=== PATIENT | female | born 1995 | race Caucasian/White ===

== ENCOUNTER 2020-10-04 06:50 | Day surgery (SDC) | payer OTHER ==
[~2020-10-04] VITALS: Ht 165.1 cm; Wt 65.9 kg
[~2020-10-04 06:50] MED LIST: BENADRYL25 MG PO; BIOTIN10 MG PO; CALCIUM500 M1 PO; DEPO-PROVE400 MG/1 M IM; KEFLEX500 MG PO; PRENATABS FA T1 EACH PO; PROBIOTIC1 EAC5 PO; SARAFEM20 MG PO; TYLENOL EXTRA500 MG PO; VALTREX1000 MG PO; VITAMIN D2000 UNIT PO; ZINC50 M1 PO; [UNRECOGNIZED DRUG - OTHER]
[2020-10-04] MEDS ORDERED: IBUPROFEN200 M1 PO (07:13)
[2020-10-04] MEDS ORDERED: ALEVE220 MG PO (07:14)
--- NOTE | 2020-10-04 07:22 | NUR ---
RT COLLECTED COVID 19 SWAB WITH NO COMPLICATIONS. RT USED THE CEPHEID RAPID TEST THROUGH IN HOUSE LAB PER DR REQUEST AT THIS TIME.
[2020-10-04] MEDS ORDERED: HYDROCODON-ACE1 EA11 PO (10:43)
[2020-10-04] MEDS ORDERED: DICLOFENAC SODI75 MG PO (10:43)
--- NOTE | 2020-10-04 10:53 | NUR ---
10/04/20 1053 Silvia Alcantara 1037- PT ARRIVES TO PACU AROUSABLE TO VOICE. PT IS NOT ANSWERING QUESTIONS YET. RESP EVEN AND UNLABORED. OXYGEN SAT HIGH 90'S TO 100% ON 6L VIA MASK. 1041- OXYGEN TITRATED OFF. 1046- PT REPORTS SHE IS HAVING 7/10 LEFT KNEE PAIN ON THE TOP OF THE KNEE. PT WOULD LIKE TO RECEIVE PAIN MEDICATION. COLLEGE SPECIALIST OFFERS NERVE BLOCK. PT STATES SHE WILL TAKE PAIN MEDICATION FIRST AND THEN DECIDE FROM THERE. 1050- PT PROVIDED ICE WATER. TOLERATING WELL. 1052- DR. WAN AT THE BEDSIDE TO TALK WITH THE PT.
--- NOTE | 2020-10-04 12:42 | NUR ---
STEADY ON FEET WITH ONE PERSON STAND BY ASSIST FOR AMBULATION TO BR. MINIMAL LIMPING NOTED. VOIDED LARGE UNMEASURED URINE IN BR. RETURNED TO BED AND REVIEWED DISCHARGE INSTRUCTIONS WITH MOTHER AT BEDSIDE. CONTINUES TO REPORT 2/10 RIGHT KNEE PAIN AND DENIES NAUSEA. DRESSED WITH HELP OF MOM AND REPORTS FEELING READY TO GO HOME.
--- NOTE | 2020-10-07 06:55 | OR ---
[facility] [address], [place] [address] Signed DATE OF OPERATION: 10/04/2020 SURGEON: Cheko Cortes MD PREOPERATIVE DIAGNOSIS: Medial meniscus tear, left knee. POSTOPERATIVE DIAGNOSIS: Locked bucket-handle tear of the medial meniscus, left knee. PROCEDURE PERFORMED: Left knee arthroscopy with partial medial meniscectomy. SWIMMING POOL SERVICER: None. ANESTHESIA: General. BLOOD LOSS: Minimal. BRIEF HISTORY: Branden is a 25-year-old female with pain and locking in her knee. MRI was consistent with fairly large meniscus tear and initially, she was watched for a while and her symptoms got worse. Finally, she elected to proceed with surgery. Once consent was obtained, she was taken to the operating room. After adequate anesthesia, she was placed on the operating room table. The right leg was flexed, abducted, and externally rotated in a well-padded leg aguirre and all downside pressure points were padded. The left leg was placed in a well-padded leg aguirre and the portal sites were pre-injected using 0.25% Marcaine with epinephrine under an alcohol prep. The leg was then prepped and draped in a standard sterile fashion. Standard inferior lateral and superolateral portals were made and the scope was introduced in the knee. ARTHROSCOPIC FINDINGS: Marked synovitis was noted throughout the medial half of the knee. The patella was noted to track well with no significant chondromalacia. The lateral compartment was intact. ACL and PCL were intact. The medial meniscus was noted to be torn and flipped into the notch. This was about 50% of the meniscus from the anteromedial corner extending back to the mid posterior horn. Electronically Signed By: CHEKO CORTES MD 10/07/20 0655 PATIENT NAME: BRANDEN MOLINA OPERATIVE REPORT DATE OF : [birth year] REPORT #: [id number] PHYSICIAN: CHEKO CORTES MD PCP: BRIAN RIVAS PAC REPORT IS CONFIDENTIAL AND NOT TO BE RELEASED WITHOUT AUTHORIZATION [facility] [address], [place] [address] Signed DESCRIPTION OF OPERATION: The diagnostic arthroscopy was undertaken as noted above. The scope was then moved to the medial portal and thin straight biters were used to cut the bucket-handle tear portion of the meniscus anteriorly and posteriorly. This was then removed in sections. Once this was accomplished, the remaining meniscus was debrided using a combination of straight and curved biters and then smoothed using the shaver. About 40% to 50% of the meniscus remained. The chondral surfaces were intact. The debris was evacuated and the scope was withdrawn. Portals were closed with 3-0 nylon. The wounds were dressed with Adaptic, ABD, and Vaughn wrap. She tolerated the procedure well. All sponge, needle, and instrument counts were correct. Cheko Cortes MD BA/BREANNE /[id number] Copies: ~ Electronically Signed By: CHEKO CORTES MD 10/07/20 0655 PATIENT NAME: BRANDEN MOLINA OPERATIVE REPORT DATE OF : [birth year] REPORT #: [id number] PHYSICIAN: CHEKO CORTES MD PCP: BRIAN RIVAS PAC REPORT IS CONFIDENTIAL AND NOT TO BE RELEASED WITHOUT AUTHORIZATION
== END 2020-10-04 12:35 | disposition home or self-care (01) ==
LOC: DS 06:50
PROVIDERS: ATTEND Specialist
PROC: 0SBD4ZZ Excision of Left Knee Joint, Percutaneous Endoscopic Approach (ICD-10-PCS; principal; 2020-10-04 09:30)
DX: S83.212A Bucket-handle tear of medial meniscus, current injury, left knee, initial encounter (principal); M65.9 Synovitis and tenosynovitis, unspecified; Z20.822 Contact with and (suspected) exposure to COVID-19; X58.XXXA Exposure to other specified factors, initial encounter
CPT/HCPCS: 01400; A9270; C9803; J0690; J1100; J2001; J2405; J2704; J3010; J7121; U0003

== ENCOUNTER 2020-11-07 22:54 | Emergency (ER) | payer OTHER ==
[~2020-11-07] VITALS: Ht 165.1 cm; Wt 64.4 kg
[~2020-11-07 22:54] MED LIST changes: +ALEVE220 MG PO; +DICLOFENAC SODI75 MG PO; +HYDROCODON-ACE1 EA11 PO; +IBUPROFEN200 M1 PO
[2020-11-08] MEDS ORDERED: IBU600 MG PO (01:39)
[2020-11-08] MEDS ORDERED: ONDANSETRON ODT8 MG PO (01:39)
--- NOTE | 2020-11-08 14:55 | EKG ---
[facility] [address] [facility] [place], [place] [address] Signed Sinus tachycardia Possible Left atrial enlargement Rightward axis Borderline ECG No previous ECGs available Confirmed by MARIA D WILD DO ([id number]) on 11/08/2020 2:54:58 PM Electronically Signed By: MARIA D WILD DO 11/08/20 1455 PATIENT NAME: BRANDEN MOLINA Electrocardiogram DATE OF : [birth year] PHYSICIAN: MARIA D WILD DO REPORT #: [id number] REPORT IS CONFIDENTIAL AND NOT TO BE RELEASED WITHOUT AUTHORIZATION
== END 2020-11-08 02:00 | disposition home or self-care (01) ==
LOC: ED 22:54
DX: R50.83 Postvaccination fever (principal); R07.9 Chest pain, unspecified; T50.B95A Adverse effect of other viral vaccines, initial encounter; K21.9 Gastro-esophageal reflux disease without esophagitis; G43.909 Migraine, unspecified, not intractable, without status migrainosus; Z88.8 Allergy status to other drugs, medicaments and biological substances; Z79.899 Other long term (current) drug therapy
CPT/HCPCS: 71045; 80053; 83735; 84484; 85025; 93005; 93010; 96374; 96375; 99284-25; J1885; J2405; J7030